=== PATIENT | female | born 1980 | race Caucasian/White ===

== ENCOUNTER 2020-06-21 13:35 | Emergency (ER) | payer OTHER ==
[~2020-06-21 13:35] MED LIST: FLEXERIL10 MG PO; KLONOPIN0.5 MG PO; MOTRIN600 MG PO; NORETHINDRONE0.35 MG PO; ZOFRAN4 MG PO
== END 2020-06-21 15:47 | disposition home or self-care (01) ==
LOC: FER 13:35
DX: G44.209 Tension-type headache, unspecified, not intractable (principal); F17.210 Nicotine dependence, cigarettes, uncomplicated
CPT/HCPCS: 70450; J1885

== ENCOUNTER → 2020-12-15 | Day surgery (SDC) | payer OTHER ==
[~2020-12-15] VITALS: Ht 167.6 cm; Wt 53.1 kg
[~2020-12-15] MED LIST changes: +BROMPHENIR-PSE118 ML PO; +CLONAZEPAM2 MG PO; +DEPO-PROVE150 MG/1 M IM; +HYDROCORTISONE10 MG PO; +IBUPROFEN800 M1 PO; +METHYLPREDNISOLO4 M1 PO; +OXCARBAZEPINE150 MG PO; +PROAIR HFA8.5 GM INH; +PROMETHAZINE HC25 M1 PO; +SYNTHROID25 MC1 PO; +VENLAFAXINE H37.5 M1 PO; +ZONISAMIDE50 MG PO
[2020-12-15 09:30] LABS: HCG (URINE) SCREEN NEGATIVE (NEGATIVE)
== END | disposition home or self-care (01) ==
LOC: FAS 08:58
PROVIDERS: Obstetrics & Gynecology
DX: N84.0 Polyp of corpus uteri (principal); N95.1 Menopausal and female climacteric states; F17.200 Nicotine dependence, unspecified, uncomplicated; E03.8 Other specified hypothyroidism; M54.9 Dorsalgia, unspecified; G89.29 Other chronic pain; R11.0 Nausea; F32.A Depression, unspecified; M51.36 Other intervertebral disc degeneration, lumbar region; E55.9 Vitamin D deficiency, unspecified; R63.4 Abnormal weight loss; Z68.1 Body mass index [BMI] 19.9 or less, adult; Z79.899 Other long term (current) drug therapy; Z90.49 Acquired absence of other specified parts of digestive tract; Z90.722 Acquired absence of ovaries, bilateral
CPT/HCPCS: 84703; J1100; J1170; J2250; J2405; J2704; J3010; J7120